=== PATIENT | female | born 1940 | race Caucasian/White ===

== ENCOUNTER 2017-04-12 14:46 | Emergency (ER) | payer MEDICARE ==
[~2017-04-12] VITALS: Ht 167.6 cm; Wt 65.8 kg
--- NOTE | 2017-04-12 14:48 | NUR ---
PT GITA TO RER BED 09. PER REPORT, PT TOOK MACROBID AND MYRBETRIQ BEFORE BREAKING OUT W/RASH AND ITCHING. PT DENIES SOB OR CHEST PAIN. PLACED ON MONITOR. STABLE VITALS AT THIS TIME. AWAITING MD LI.
--- NOTE | 2017-04-12 15:15 | NUR ---
DR ROBERTSON AT BEDSIDE FOR EVAL.
[2017-04-12] MEDS ORDERED: methylPREDNISolone SOD SUCC 125 MG/2ML VIAL ONE (15:16)
[2017-04-12] MEDS ORDERED: EPINEPHRINE (1:1000) 1 MG/ML AMPUL ONE (15:16)
[2017-04-12] MEDS ORDERED: methylPREDNISolone SOD SUCC 125 MG/2ML VIAL IV ONE (15:30)
[2017-04-12] MEDS ORDERED: EPINEPHRINE (1:1000) 1 MG/ML AMPUL SUBCUT ONE (15:30)
--- NOTE | 2017-04-12 16:30 | NUR ---
NO DIFFICULTY BREATHING/SOB. PT STATES FEELING MUCH BETTER. DR AILYN MAXWELL SEE PT. OK FOR D/C. PT DISCHARGE HOME IN STABLE CONDITION. IVHL DISCONTINUED. NO BLEEDING NOTED.
[2017-04-12 16:33] VITALS: BP 142/99
== END 2017-04-12 16:34 | disposition home or self-care (01) ==
LOC: ER 14:47
DX: T78.40XA Allergy, unspecified, initial encounter (principal); T37.8X5A Adverse effect of other specified systemic anti-infectives and antiparasitics, initial encounter; M54.5 Low back pain; Z85.118 Personal history of other malignant neoplasm of bronchus and lung; G89.29 Other chronic pain; J44.9 Chronic obstructive pulmonary disease, unspecified; Z88.1 Allergy status to other antibiotic agents; Z88.8 Allergy status to other drugs, medicaments and biological substances; Y92.89 Other specified places as the place of occurrence of the external cause
CPT/HCPCS: 96372; 96374; 99284; A4606; J0171; J2930; Z7610